=== PATIENT | female | born 1970 | race Caucasian/White ===

== ENCOUNTER 2018-02-24 17:20 | Emergency (ER) | payer OTHER ==
[2018-02-24 17:24] VITALS: BP 146/94; PULSE 85; TEMP 98.6; BMI 24.1
--- NOTE | 2018-02-24 17:48 | PDOC ---
History of Present Illness - General Chief Complaint: Back Pain Stated Complaint: JOINT PAIN/ LEG NUMBNESS Time Seen by Provider: 02/24/18 17:25 History Source: Patient Exam Limitations: No Limitations - History of Present Illness Initial Comments: 02/24/18 17:40 47 yr female with c/o bilateral arm pain at night to hands and finger, tingling numb painful . pt also with pain to the right buttock radiates down her leg neg urine or bowel dysfunction Past History - Past Medical History Allergies/Adverse Reactions: Allergies Allergy/AdvReac Type Severity Reaction Status Date / Time No Known Allergies Allergy Verified 02/24/18 17:24 Home Medications: Ambulatory Orders Cyclobenzaprine HCl [Flexeril -] 10 mg PO TID PRN #21 tablet MDD 30mg 02/24/18 Methylprednisolone [Medrol Dose Zoran] 4 mg PO ASDIR #21 tablet 02/24/18 Mv,Calcium,Min/Iron/Folic/Vitk [Essential Woman Tablet] 1 each PO ASDIR [place]-3 Fatty Acids/Fish Oil [Fish Oil 1,000 mg Capsule] 1 each PO ASDIR Anemia: Yes COPD: No - Suicide/Smoking/Psychosocial Hx Smoking History: Former smoker Have you smoked in the past 12 months: No If you are a former smoker, when did you quit?: 2014 Information on smoking cessation initiated: No Trauma Specific PMHX - Complaint Specific PMHX Arthritis: No Back Injury: No Neck Injury: No Hx Sacro Iliac Joint Dysfunction: No Review of Systems - Review of Systems Able to Perform ROS?: Yes Is the patient limited [place] proficient: No Constitutional: No: Symptoms Reported HEENTM: No: Symptoms Reported Respiratory: No: Symptoms reported Cardiac (ROS): No: Symptoms Reported ABD/GI: No: Symptoms Reported : No: Symptoms Reported Musculoskeletal: Yes: Symptoms Reported Neurological: Yes: Symptoms reported *Physical Exam - Vital Signs Last Vital Signs Temp Pulse Resp BP Pulse Ox 98.6 F 85 18 146/94 100 02/24/18 17:22 02/24/18 17:22 02/24/18 17:22 02/24/18 17:22 02/24/18 17:22 - Physical Exam General Appearance: Yes: Nourished, Appropriately Dressed HEENT: positive: EOMI, FREEDOM Neck: positive: Supple, Decreased range of motion (stiffness), Tender lateral. negative: Tender, Tender midline Respiratory/Chest: positive: Lungs Clear, Normal Breath Sounds. negative: Chest Tender Cardiovascular: positive: Regular Rhythm, Regular Rate Gastrointestinal/Abdominal: positive: Normal Bowel Sounds, Soft. negative: Tender Musculoskeletal: positive: Normal Inspection Extremity: positive: Normal Capillary Refill, Normal Inspection, Normal Range of Motion, Tender (ttp to bilateral wristsat the carpal tunnel ) Integumentary: positive: Normal Color, Dry, Warm Neurologic: positive: junior bookkeeper II-XII NML intact, Fully Oriented, Alert, Normal Mood/ Affect ED Treatment Course - RADIOLOGY Radiology Studies Ordered: Category Date Time Status SPINE-CERVICAL [RAD] Stat Radiology 02/24/18 17:35 Ordered SPINE-LUMBAR ONLY [RAD] Stat Radiology 02/24/18 17:35 Ordered Medical Decision Making - Medical Decision Making 02/24/18 17:48 cc: bilateral arm pain radiates to fingers and wrists at night , shakes them out at ight to try to relieve the pain pt tosses and turns often at night unable to get comfortable pt also with right buttock pain , radiates to lateral thigh cramps at night pain to the lateral side of the neck no midline tenderness *DC/Admit/Observation/Transfer Diagnosis at time of Disposition: Carpal tunnel syndrome on both sides Sciatica Qualifiers: Laterality: right Qualified Code(s): M54.31 - Sciatica, right side - Discharge Dispostion Disposition: HOME Condition at time of disposition: Good - Prescriptions Prescriptions: Cyclobenzaprine HCl [Flexeril -] 10 mg PO TID PRN #21 tablet MDD 30mg PRN Reason: Muscle Spasms Methylprednisolone [Medrol Dose Zoran] 4 mg PO ASDIR #21 tablet - Referrals Referrals: Daniel Bowen MD, [facility] [Staff Physician] - - Patient Instructions Additional Instructions: follow with the neurosurgeon as referred below for follow up take prednsione as directed take flexeril for muscle spasm or stiffness purchase over the counter carpal tunnel wrists splints sold at [employer] any medical supply store wear them at night apply warm compresses to lower back and neck every 4hrs for 30 minutes - Post Discharge Activity
== END 2018-02-24 18:06 | disposition home or self-care (01) ==
LOC: JERFT 17:20
DX: G56.03 Carpal tunnel syndrome, bilateral upper limbs (principal); M54.31 Sciatica, right side
CPT/HCPCS: 72050-TC-FY; 72100-TC-FY; 99281-25

== ENCOUNTER 2019-10-25 11:23 | Emergency (ER) | payer OTHER ==
[2019-10-25 11:31] VITALS: BP 132/94; PULSE 87; TEMP 98.3; BMI 23.3
[2019-10-25] MEDS: ALBUTEROL SO4 2.5/IPRATROPIUM 0.5 INH SOL 3 ML VIAL.NEB. NEB SCH ×3 (12:12→12:37)
[2019-10-25] MEDS ORDERED: guaiFENesin 200 MG/10 ML 10 ML UNIT-DOSE CUPS PO ONE (12:33)
[2019-10-25] MEDS ORDERED: guaiFENesin/CODEINE 5 ML UNIT-DOSE CUPS PO ONE (12:36)
[2019-10-25] MEDS ORDERED: ALBUTEROL SO4 2.5/IPRATROPIUM 0.5 INH SOL 3 ML VIAL.NEB. NEB ONE (12:37)
--- NOTE | 2019-10-25 12:52 | PDOC ---
History of Present Illness - General Chief Complaint: Cold Symptoms Stated Complaint: COLD SYMPTOMS Time Seen by Provider: 10/25/19 11:52 History Source: Patient Exam Limitations: No Limitations Past History - Past Medical History Allergies/Adverse Reactions: Allergies Allergy/AdvReac Type Severity Reaction Status Date / Time No Known Allergies Allergy Verified 03/05/18 16:52 Home Medications: Ambulatory Orders Albuterol 0.083% Nebulizer Richelle [Ventolin 0.083% Nebulizer Soln -] 1 neb NEB Q4H PRN #30 vial 10/25/19 Albuterol Sulfate Inhaler - [Ventolin HFA Inhaler -] 1 - 2 inh PO Q4H PRN #1 inhaler 10/25/19 Fluticasone Prop 0.05% Nasal [Flonase -] 1 - 2 spray NS DAILY #1 spray.pump 10/25/19 Nebulizer and Compressor [Portable Nebulizer System] 1 each MC ASDIR #1 each 10/25/19 Anemia: Yes COPD: No DVT: No - Psycho Social/Smoking Cessation Hx Smoking History: Never smoked Have you smoked in the past 12 months: No If you are a former smoker, when did you quit?: 2014 Hx Alcohol Use: No Drug/Substance Use Hx: No Substance Use Type: None *Physical Exam - Vital Signs Last Vital Signs Temp Pulse Resp BP Pulse Ox 98.3 F 87 19 132/94 99 10/25/19 11:28 10/25/19 11:28 10/25/19 11:28 10/25/19 11:28 10/25/19 11:28 - Physical Exam General Appearance: No: Apparent Distress HEENT: positive: Nasal Congestion. negative: Rhinorrhea Respiratory/Chest: positive: Rhonchi, Wheezing. negative: Respiratory Distress, Accessory Muscle Use, Labored Respiration, Stridor Cardiovascular: positive: Regular Rhythm, Regular Rate, S1, S2. negative: Murmur Gastrointestinal/Abdominal: positive: Normal Bowel Sounds, Soft. negative: Tender, Distended, Guarding, Rebound Extremity: negative: Pedal Edema, Swelling Neurologic: positive: Alert ED Treatment Course - RADIOLOGY Radiology Studies Ordered: Category Date Time Status CHEST PA & LAT [RAD] Stat Radiology 10/25/19 12:05 Taken - Medications Given in the ED: ED Medications Discontinued Medications Generic Name Dose Route Start Last Admin Trade Name Freq PRN Reason Stop Dose Admin Albuterol/Ipratropium 1 amp 10/25/19 12:15 10/25/19 12:37 Duoneb - NEB 10/25/19 12:46 1 amp Q15M CORRINA Administration Guaifenesin 10 ml 10/25/19 12:33 10/25/19 12:37 Robitussin - PO 10/25/19 12:34 10 ml ONCE ONE Administration Medical Decision Making - Medical Decision Making 49-year-old female with no significant past medical history presents with productive cough for 6 days along with wheezing for 2 days. Has been using Mucinex which helps with her cough. Mentions she gets bronchitis every year and the symptoms feel like her bronchitis. Denies fever, shortness of breath, chest pain, abdominal pain, nausea, vomiting, recent travel, sick contacts. Patient was a former smoker and states she quit a few years ago (states she was not a heavy smoker and smoked maybe around 10 cigarettes a week). Denies drug use Chest x-ray negative for pneumonia Likely bronchitis Given duo nebs and Robitussin for her symptoms Will reassess after medications 10/25/19 12:50 CXR negative patient feeling much better after meds no further wheezing/rhonchi noted stable for dc 10/25/19 13:04 Discharge - Discharge Information Problems reviewed: Yes Clinical Impression/Diagnosis: Bronchitis Condition: Improved Disposition: HOME - Admission Yes - Additional Discharge Information Prescriptions: Fluticasone Prop 0.05% Nasal [Flonase -] 1 - 2 spray NS DAILY #1 spray.pump Nebulizer and Compressor [Portable Nebulizer System] 1 each MC ASDIR #1 each Albuterol 0.083% Nebulizer Richelle [Ventolin 0.083% Nebulizer Soln -] 1 neb NEB Q4H PRN #30 vial PRN Reason: Wheezing Albuterol Sulfate Inhaler - [Ventolin HFA Inhaler -] 1 - 2 inh PO Q4H PRN #1 inhaler PRN Reason: Wheezing Prescription Drug Monitoring Program (I-STOP) results: I-STOP not reviewed - Follow up/Referral - Patient Discharge Instructions Patient Printed Discharge Instructions: DI for Acute Bronchitis Additional Instructions: Thank you for choosing [facility]. It was a pleasure taking care of you. Use albuterol as needed for wheezing/shortness of breath Use Nedi-Pot, Flonase spray and Sudafed to help with nasal congestion You may use Robitussin as needed for cough Follow-up with your doctor in 2 days Return to the Emergency Department if your symptoms worsen or persist or have other concerning symptoms. - Post Discharge Activity
== END 2019-10-25 13:25 | disposition home or self-care (01) ==
LOC: JERFT 11:23
PROC: 3E0F7GC Introduction of Other Therapeutic Substance into Respiratory Tract, Via Natural or Artificial Opening (ICD-10-PCS; principal; 2019-10-25)
DX: J40 Bronchitis, not specified as acute or chronic (principal)
CPT/HCPCS: 71046-TC-FY; 99283-25

== ENCOUNTER 2019-11-09 04:01 | Emergency (ER) | payer OTHER ==
[2019-11-09 05:28] VITALS: TEMP 98.4; BMI 25.7
[2019-11-09] MEDS ORDERED: ACETAMINOPHEN 1000 MG/100 ML VIAL (NON FORMULARY) IVPB ONE (06:38)
[2019-11-09 07:09] LABS: BASO % 0.9 % (0-2.0); EOS % 0.2 % (0-4.5); HEMATOCRIT 37.4 % (32.4-45.2); HEMOGLOBIN 12.8 GM/dL (10.7-15.3); LYMPH % 17.7 % (8-40); MCH 32.3 pg (25.7-33.7); MCHC 34.1 g/dl (32.0-36.0); MEAN CELL VOLUME 94.6 fl (80-96); MEAN PLT VOLUME 8.6 fl (7.5-11.1); MONO % 5.8 % (3.8-10.2); NEUT % 75.4 % (42.8-82.8); PLATELET COUNT 371 K/MM3 (134-434); RBC 3.95 M/mm3 (3.60-5.2); WHITE BLOOD COUNT 10.7 K/mm3 (4.0-10.0)
[2019-11-09] MEDS ORDERED: MAG HYDROX/AL HYDROX/SIMETH -MYLANTA- ORAL SUSPENSION PO ONE (07:29)
[2019-11-09] MEDS ORDERED: FAMOTIDINE 20 MG/50 ML IVPB 20 MG/50 ML MG IVPB ONE ×2 (07:29→08:17)
[2019-11-09 07:38] LABS: ALBUMIN 3.9 g/dl (3.4-5.0); ALK PHOS 90 U/L (45-117); ANION GAP 9 MMOL/L (8-16); BILIRUBIN,TOTAL 0.4 mg/dL (0.2-1); BLOOD UREA NITROGEN 6.6 mg/dL (7-18); CALCIUM 8.9 mg/dL (8.5-10.1); CHLORIDE 104 mmol/L (98-107); CO2 24 mmol/L (21-32); CREATININE 0.6 mg/dL (0.55-1.3); GLUCOSE,RANDOM 100 mg/dL (74-106); POTASSIUM 4.1 mmol/L (3.5-5.1); SGOT/AST 18 U/L (15-37); SGPT/ALT 28 U/L (13-61); SODIUM 137 mmol/L (136-145); TOT PROT 7.6 g/dl (6.4-8.2)
[2019-11-09] MEDS ORDERED: ACETAMINOPHEN INJECTION 100 ML IVPB ONE (07:42)
[2019-11-09] MEDS ORDERED: MAG HYDROX/AL HYDROX/SIMETH 30 ML UNIT-DOSE CUP ONE (08:16)
[2019-11-09 10:21] VITALS: BP 132/72; PULSE 88
== END 2019-11-09 10:00 | disposition home or self-care (01) ==
LOC: JER 04:01
PROC: 3E033GC Introduction of Other Therapeutic Substance into Peripheral Vein, Percutaneous Approach (ICD-10-PCS; principal; 2019-11-09)
PROC: 3E033NZ Introduction of Analgesics, Hypnotics, Sedatives into Peripheral Vein, Percutaneous Approach (ICD-10-PCS; 2019-11-09)
DX: R07.89 Other chest pain (principal); R00.2 Palpitations; Z91.018 Allergy to other foods
CPT/HCPCS: 36415; 71046-TC-FY; 80053; 82550; 82553; 84484; 84703; 85025; 93005; 93010; 96365; 96375; 99285-25; J0131

== ENCOUNTER 2019-11-21 03:04 | Emergency (ER) | payer OTHER ==
[2019-11-21 03:23] VITALS: TEMP 98.2; BMI 25.7
[2019-11-21] MEDS ORDERED: ACETAMINOPHEN 325 MG TABLET (FP) PO ONE (03:28)
[2019-11-21] MEDS ORDERED: IBUPROFEN 600 MG TABLET (FP) PO ONE ×2 (03:39→03:41)
[2019-11-21 05:06] VITALS: BP 118/71; PULSE 94
== END 2019-11-21 05:07 | disposition home or self-care (01) ==
LOC: JER 03:04
DX: R07.89 Other chest pain (principal)
CPT/HCPCS: 71046-TC-FY; 93005; 93010; 99284-25

== ENCOUNTER 2020-12-31 17:16 | Emergency (ER) | payer OTHER ==
[2020-12-31 17:36] VITALS: BP 102/63; BMI 26.6
[2020-12-31] MEDS ORDERED: SODIUM CHLORIDE 0.9% 500 ML INFUS.BAG IV ONE ×2 (18:19→20:07)
[2020-12-31] MEDS ORDERED: MAG HYDROX/AL HYDROX/SIMETH -MYLANTA- ORAL SUSPENSION PO ONE (18:24)
[2020-12-31] MEDS ORDERED: FAMOTIDINE 20 MG/50 ML IVPB 20 MG in PREMIX 50 IVPB ONE (18:24)
[2020-12-31] MEDS ORDERED: MAG HYDROX/AL HYDROX/SIMETH 30 ML UNIT-DOSE CUP ONE (18:32)
[2020-12-31] MEDS ORDERED: FAMOTIDINE 20 MG/50 ML IVPB 20 MG/50 ML MG IVPB ONE (18:33)
[2020-12-31 19:04] VITALS: PULSE 105; TEMP 98.3
[2020-12-31 19:22] LABS: VENOUS BASE EXCESS -0.7 mmol/L (-2-2); VENOUS O2 SATURATION 82.3 % (70-80); VENOUS PH 7.375 (7.310-7.410)
[2020-12-31 19:24] LABS: HEMATOCRIT 33.7 % (32.4-45.2); HEMOGLOBIN 11.3 GM/dL (10.7-15.3); MCH 31.6 pg (25.7-33.7); MCHC 33.6 g/dl (32.0-36.0); MEAN PLT VOLUME 8.6 fl (7.5-11.1); PLATELET COUNT 318 K/MM3 (134-434); RBC 3.58 M/mm3 (3.60-5.2); RDW 13.5 % (11.6-15.6); WHITE BLOOD COUNT 11.9 K/mm3 (4.0-10.0)
[2020-12-31 19:32] LABS: INR 1.03 (0.83-1.09); PROTHROMBIN TIME (PATIENT) 12.6 SEC (9.7-13.0)
[2020-12-31 19:35] LABS: ACTIVATED PTT 24.4 SECONDS (25.2-36.5)
[2020-12-31 19:54] LABS: CHLORIDE 106 mmol/L (98-107); SODIUM 138 mmol/L (136-145)
[2020-12-31 19:56] LABS: CALCIUM 7.9 mg/dL (8.5-10.1)
[2020-12-31 19:57] LABS: ALBUMIN 3.3 g/dl (3.4-5.0); ANION GAP 7 MMOL/L (8-16); BLOOD UREA NITROGEN 12.7 mg/dL (7-18); CO2 25 mmol/L (21-32); GLUCOSE,RANDOM 84 mg/dL (74-106); MAGNESIUM 2.1 mg/dL (1.8-2.4)
[2020-12-31 20:00] LABS: CREATININE 0.8 mg/dL (0.55-1.3); PHOSPHOROUS 3.3 mg/dL (2.5-4.9); SGOT/AST 31 U/L (15-37); SGPT/ALT 31 U/L (13-61)
[2020-12-31 20:01] LABS: BILIRUBIN,TOTAL 0.2 mg/dL (0.2-1); TOT PROT 6.5 g/dl (6.4-8.2)
[2020-12-31 20:03] LABS: ALK PHOS 67 U/L (45-117)
[2020-12-31] MEDS ORDERED: PSEUDOEPHEDRINE HCL 60 MG TABLET PO ONE (20:07)
[2020-12-31] MEDS ORDERED: FLUTICASONE PROP 0.05% 16 GM NASAL SPRAY NS ONE (20:07)
[2020-12-31] MEDS ORDERED: PSEUDOEPHEDRINE HCL 60 MG TABLET ONE (21:04)
== END 2020-12-31 23:12 | disposition home or self-care (01) ==
LOC: JER 17:16
PROC: 3E033GC Introduction of Other Therapeutic Substance into Peripheral Vein, Percutaneous Approach (ICD-10-PCS; principal; 2020-12-31)
DX: R07.89 Other chest pain (principal); E86.0 Dehydration
CPT/HCPCS: 36415; 80053; 82550; 82553; 82803; 83605; 83735; 84100; 84484; 85027; 85610; 85730; 87040; 93005; 93010; 99284-25

== ENCOUNTER 2021-09-18 18:57 | Emergency (ER) | payer OTHER ==
[2021-09-18 19:26] VITALS: BP 141/96; PULSE 97; TEMP 97.7; BMI 26.2
[2021-09-18 21:06] LABS: BASO % 0.6 % (0-2.0); EOS % 1.5 % (0-4.5); HEMATOCRIT 34.7 % (32.4-45.2); HEMOGLOBIN 11.8 GM/dL (10.7-15.3); MCH 31.3 pg (25.7-33.7); MCHC 34.1 g/dl (32.0-36.0); MEAN CELL VOLUME 91.8 fl (80-96); MEAN PLT VOLUME 8.3 fl (7.5-11.1); MONO % 8.7 % (3.8-10.2); NEUT % 62.2 % (42.8-82.8); PLATELET COUNT 315 10^3/uL (134-434); RBC 3.78 M/mm3 (3.60-5.2); RDW 13.4 % (11.6-15.6); WHITE BLOOD COUNT 7.4 K/mm3 (4.0-10.0)
[2021-09-18 21:22] LABS: CHLORIDE 106 mmol/L (98-107); SODIUM 141 mmol/L (136-145)
[2021-09-18 21:24] LABS: ANION GAP 7 MMOL/L (8-16); BLOOD UREA NITROGEN 10.1 mg/dL (7-18); CALCIUM 8.5 mg/dL (8.5-10.1); CO2 28 mmol/L (21-32)
[2021-09-18 21:25] LABS: ALBUMIN 3.6 g/dl (3.4-5.0); GLUCOSE,RANDOM 93 mg/dL (74-106); MAGNESIUM 2.2 mg/dL (1.8-2.4)
[2021-09-18 21:27] LABS: CREATININE 0.6 mg/dL (0.55-1.3); SGOT/AST 34 U/L (15-37); SGPT/ALT 35 U/L (13-61)
[2021-09-18 21:28] LABS: PHOSPHOROUS 4.1 mg/dL (2.5-4.9)
[2021-09-18 21:29] LABS: BILIRUBIN,TOTAL 0.2 mg/dL (0.2-1); TOT PROT 6.9 g/dl (6.4-8.2)
[2021-09-18 21:30] LABS: ALK PHOS 74 U/L (45-117)
[2021-09-18] MEDS ORDERED: POTASSIUM CHLORIDE TABS 20 MEQ TABLET.ER (FP) PO ONE ×2 (21:44→21:59)
== END 2021-09-18 23:33 | disposition home or self-care (01) ==
LOC: JER 18:57
DX: G62.9 Polyneuropathy, unspecified (principal); M79.602 Pain in left arm; F41.9 Anxiety disorder, unspecified
CPT/HCPCS: 36415; 80053; 83735; 84100; 84484; 85025; 93005; 93010; 99284-25

== ENCOUNTER 2022-09-17 20:58 | Emergency (ER) | payer OTHER ==
[2022-09-17 21:09] VITALS: BMI 26.1
[2022-09-17] MEDS ORDERED: metoPROLOL SUCCINATE 25 MG TAB.SR.24H (FP) PO ONE ×2 (22:13→22:43)
[2022-09-17 22:27] LABS: BASO % 0.8 % (0-2.0); EOS % 1.2 % (0-4.5); HEMATOCRIT 37.1 % (32.4-45.2); HEMOGLOBIN 12.4 GM/dL (10.7-15.3); LYMPH % 23.9 % (8-40); MCH 30.9 pg (25.7-33.7); MCHC 33.5 g/dl (32.0-36.0); MEAN CELL VOLUME 92.2 fl (80-96); MEAN PLT VOLUME 8.5 fl (7.5-11.1); MONO % 6.1 % (3.8-10.2); PLATELET COUNT 356 10^3/uL (134-434); RBC 4.03 M/mm3 (3.60-5.2); RDW 12.8 % (11.6-15.6); WHITE BLOOD COUNT 10.9 K/mm3 (4.0-10.0)
[2022-09-17 22:44] LABS: CREATININE 0.6 mg/dL (0.55-1.3)
[2022-09-17 22:46] LABS: BILIRUBIN,TOTAL 0.2 mg/dL (0.2-1); TOT PROT 7.8 g/dl (6.4-8.2)
[2022-09-18 01:29] VITALS: BP 141/94; PULSE 96; RESP 18; TEMP 98.4
== END 2022-09-18 01:56 | disposition home or self-care (01) ==
LOC: JER 20:58
DX: M54.2 Cervicalgia (principal); R00.2 Palpitations; R20.2 Paresthesia of skin
CPT/HCPCS: 36415; 70450-TC; 70498-TC; 71045-TC-FY; 80053; 84484; 84703; 85025; 85379; 93005; 93010; 99285-25; Q9967